=== PATIENT | female | born 1965 | race African-American/Black ===

== ENCOUNTER 2018-01-06 12:38 | Emergency (ER) | payer SELFPAY ==
[2018-01-06 12:46] VITALS: BP 113/74; PULSE 62; TEMP 97.9; BMI 36.5
[2018-01-06] MEDS ORDERED: KETOROLAC TROMETHAMINE 60 MG/2 ML VIAL IM ONE (14:02)
[2018-01-06] MEDS ORDERED: KETOROLAC TROMETHAMINE 60 MG/2 ML VIAL ONE (14:07)
--- NOTE | 2018-01-06 14:13 | PDOC ---
History of Present Illness - General Chief Complaint: Back Pain Stated Complaint: BACK PAIN Time Seen by Provider: 01/06/18 13:30 History Source: Patient Exam Limitations: No Limitations - History of Present Illness Initial Comments: CHIEF COMPLAINT: 52 y/o afebrile female with PMH asthma, depression and sciatica c/o left sciatica pain x 4 days. HISTORY OF PRESENT ILLNESS: The patient states she does not recall lifting or twisting abnormally. She states she's been taking motrin and flexeril with no relief. She denies midline back pain, trauma, saddle anesthesia, bowel/bladder incontinence, numbness/tingling in LEs. Vital signs on arrival are within normal limits. REVIEW OF SYSTEMS: GENERAL/CONSTITUTIONAL: No fever/chills. No weakness. No weight change. GASTROINTESTINAL: No abd pain, nausea, vomiting, diarrhea. GENITOURINARY: No dysuria, frequency, or change in urination. MUSCULOSKELETAL: +left low back pain radiating into left leg. No joint or muscle swelling or pain. No neck pain. SKIN: No rash or easy bruising. NEUROLOGIC: No headache, vertigo, loss of consciousness, or loss of sensation. PHYSICAL EXAM: GENERAL: The patient is awake, alert, and fully oriented, in no acute distress. SHe is ambulatory with slowed gait secondary to pain. HEAD: Normal with no signs of trauma. EYES: Pupils equal, round and reactive to light, extraocular movements intact, sclera anicteric, conjunctiva clear. BACK: No midline lumbar spine TTP, step offs or crepitus. Pain with palpation of left lower lumbar paravertebral muscles. Pain reproduced with palpation of left buttock. EXTREMITIES: Normal range of motion, no edema. NEUROLOGICAL: Normal speech, normal gait. No saddle anesthesia. SKIN: Warm, Dry, normal turgor, no rashes or lesions noted. Past History - Past Medical History Allergies/Adverse Reactions: Allergies Allergy/AdvReac Type Severity Reaction Status Date / Time Penicillins Allergy Verified 01/06/18 12:43 Home Medications: Ambulatory Orders Albuterol Sulfate Inhaler - [Ventolin Hfa Inhaler -] 2 inh PO Q4H 08/01/15 Cyclobenzaprine HCl [Flexeril -] 10 mg PO PRN 08/01/15 Fluticasone/Salmeterol [Advair 250-50 Diskus] 1 each IH DAILY 08/01/15 Oxycodone HCl/Acetaminophen [Percocet 5/325 -] 1 - 2 tab PO Q4H #20 tablet 08/01 Diazepam [Valium] 10 mg PO TID #10 tablet MDD 3 01/06/18 Asthma: Yes COPD: No Psychiatric Problems: Yes - Immunization History Immunization Up to Date: Yes - Suicide/Smoking/Psychosocial Hx Smoking History: Never smoked Hx Alcohol Use: No Drug/Substance Use Hx: No Substance Use Type: None *Physical Exam - Vital Signs Last Vital Signs Temp Pulse Resp BP Pulse Ox 97.9 F 62 20 113/74 96 01/06/18 12:44 01/06/18 12:44 01/06/18 12:44 01/06/18 12:44 01/06/18 12:44 Medical Decision Making - Medical Decision Making A/P: 52 y/o female with left sciatica pain. Flexeril not working. Will give IM toradol in the ER and discharge to home with rx for valium. Instructed her to stop taking flexeril, take valium and motrin together, stretch her left leg/ hip multiple times per day and return to the ER with any worsening or concerning symptoms. The patient verbalizes understanding of all instructions, has no further questions and is awaiting discharge. *DC/Admit/Observation/Transfer Diagnosis at time of Disposition: Sciatica of left side - Discharge Dispostion Disposition: HOME Condition at time of disposition: Good - Referrals - Patient Instructions Printed Discharge Instructions: DI for Back Pain With Sciatica Additional Instructions: Discharge Instructions: -Continue taking either Ibuprofen or Motrin every 6 hours with food -A prescription for valium has been sent to your pharmacy; please DO NOT TAKE WITH FLEXERIL -Valium may cause drowsiness so do not drive while taking -Stretch your affected leg/hip multiple times per day -Follow up with your doctor within 1 week -Return to the ER with any worsening or concerning symptoms - Post Discharge Activity
== END 2018-01-06 14:21 | disposition home or self-care (01) ==
LOC: JERFT 12:38
PROC: 3E0233Z Introduction of Anti-inflammatory into Muscle, Percutaneous Approach (ICD-10-PCS; principal; 2018-01-06)
DX: M54.42 Lumbago with sciatica, left side (principal); F32.9 Major depressive disorder, single episode, unspecified
CPT/HCPCS: 99281-25